=== PATIENT | female | born 1955 | race Caucasian/White ===

== ENCOUNTER 2023-08-13 10:39 | Outpatient (AMB) | payer OTHER, SELFPAY ==
--- NOTE | 2023-08-13 10:55 | MHC.OFFVIS ---
Intake Vital Signs 08/13/23 10:58 Height 5 ft 7 in Weight 174 lb 2.643 oz BMI 27.3 BP 121/73 Blood Pressure Location Lt brachial Position Sitting Pulse 86 Intake Visit Reasons: Cyst of Pancreas Intake Note: Yudy presents in the office as a new patient regarding her pancreatic cyst. CC: Cysts have been followed for 10 years and she recently just moved to [place] from [facility]. Allergies No Known Allergies Allergy (Verified 08/13/23 10:59) HPI HPI Comments History of Present Illness Details 67 y.o F with PMH of chronic pancreatitis, pancreatic cysts, who is here for management of pancreatic cysts. Pt reports getting diagnosed with pancreatic tail cysts in 2013 incidentally when she was had a CT Abd/pel for LGIB from post-polypectomy bleed. Since then she has had EUS 2014 (Dr Taylor) with FNA which did not show any malignant cells or mucin pool. At that time the largest cysts measured 7x4 and 8 x7 mm. Since then has had multiple serial imaging. CT 04/2023: Diffuse chronic pancreatitis with calcifications with complex cystic area in pancreatic tail measuring 2.5x 1.5 cm with PD dilation. Pancreatic body atrophic. No LN. CT 11/2020: Multiple calcifications in the panc head body and tail. Mild PD dilation in tail to 5 mm. Cysts in tail measuring 1 cm and 0.7 cm. Possible calculi within PD. MRI 04/2020: No PD or CBD dilation. Several small cysts in panc head at most 0.4 cm. Panc body cyst 0.7 cm. A cluster of cysts in panc tail and the largest cyst measures 0.5 cm. Symptoms, does not report any abd pain, N,V. Lost some weight after covid last year but otherwise stable. Pt does not report personal hx of pancreatitis. Grandmother had panc ca in her 70s. Up to date on her colo. [facility] Surgical History (Updated 08/13/23 @ 10:59 by ANISHA Crain) Hx of colonoscopy History of esophagogastroduodenoscopy (EGD) Review of Systems Const All systems reviewed & are unremarkable except as noted in HPI and below Physical Exam Vital Signs: Last Vital Signs Pulse 86 08/13/23 10:58 BP 121/73 08/13/23 10:58 BMI result Body Mass Index 27.3 Gen appear: NAD HEENT: nonicteric, no cervical lymphadenopathy Chest: CTA CVS: Regular S1/S2 Abd: soft, nontender, nondistended, bowel sounds + Ext: no peripheral edema Neuro: A/Ox3, noted to move all extremities spontaneously Psych: interacting appropriately Assessment & Plan Assessment & Plan (1) Pancreatic cyst: Code(s): K86.2 - Cyst of pancreas (2) Pancreatic duct dilated: Code(s): K86.89 - Other specified diseases of pancreas Plan Reviewed with the patient that although deemed to be benign back in 2014, the cyst has had considerable growth in just the last 3 years, and now has reported appearance of complex cyst in the tail with dilated PD. Would recommend another EUS +/- FNA. Images not available for review, and the size increase is based on the documented reports. Since EUS facility is not available in [facility], she will be referred to tertiary care center with advanced endoscopy facility. Pt will check with her insurance carrier to let us know which hospital is considered in-network for her. She was advised to do this on an expedited basis so the referral may be sent out as soon as possible. Coding Level of Care Code New Pt Level 4 (55979) Diagnoses Pancreatic cyst K86.2 Pancreatic duct dilated K86.89
[2023-08-13 10:58] VITALS: BP 121/73; PULSE 86; BMI 27.3
== END 2023-08-13 13:32 | disposition home or self-care (01) ==
PROVIDERS: Visit Provider Internal Medicine
DX: K86.2 Cyst of pancreas (principal); K86.89 Other specified diseases of pancreas
CPT/HCPCS: 99204

== ENCOUNTER → 2023-08-13 10:39 | Outpatient (BNVA) | payer OTHER, SELFPAY | PROVIDERS: Visit Provider Internal Medicine | DX: K86.2 Cyst of pancreas (principal); K86.89 Other specified diseases of pancreas | CPT/HCPCS: 99202 ==